=== PATIENT | male | born 1990 | race Caucasian/White ===

== ENCOUNTER → 2017-12-17 10:37 | Outpatient (CLI) | payer OTHER, SELFPAY ==
--- NOTE | 2017-12-17 | DI.RAD.S_ITS ---
PROCEDURE: [place] SHOULDER INJECTION MR/CT RT INDICATIONS: Pain in right shoulder TECHNIQUE: The indications, alternatives, benefits, risks, and complications of the procedure were explained to the patient. Written informed consent was obtained and placed in the chart. The shoulder was examined fluoroscopically and a site for needle placement chosen for entry into the glenohumeral joint from an anterior approach. The skin was prepped and draped in a sterile fashion, and 1% lidocaine infiltrated from skin down to joint capsule. A spinal needle was inserted into the glenohumeral joint, and a small amount of iodinated contrast media injected to confirm intra-articular placement of the needle tip. This was followed by approximately 12 mL dilute solution of a gadolinium containing MR contrast agent. The needle was removed and a dressing was applied. The patient was given postprocedural instructions and sent to the MR suite for MR imaging. FINDINGS: A single fluoroscopic spot image demonstrates intra-articular location of injected iodinated contrast. IMPRESSION: Successful fluoroscopically guided administration of dilute Gadolinium solution into the shoulder joint for MR arthrogram. Dictated by: Seb Herring M.D. on 12/17/2017 at 14:34 Approved by: Seb Herring M.D. on 12/17/2017 at 14:34
--- NOTE | 2017-12-17 | DI.MRI.S_ITS ---
PROCEDURE: MR SHOULDER RT W CON INDICATIONS: PAIN IN RIGHT SHOULDER TECHNIQUE: After the administration of 12 mL of dilute intra-articular Gadolinium contrast, oblique coronal T1 and T2 spin echo with fat saturation, oblique sagittal T1 spin echo with and without fat saturation, oblique sagittal T2 fast spin echo with fat saturation, axial T1 spin echo with fat saturation through the shoulder. COMPARISON: [facility], , [place] SHOULDER INJECTION MR/CT RT, 12/17/2017, 11:11. FINDINGS: Image quality: Excellent. Rotator cuff: The supraspinatus, infraspinatus, teres minor and subscapularis tendons appear intact throughout. No rotator cuff muscle atrophy on sagittal images. Bones and bursae: No bone marrow contusions or fractures. Mild acromioclavicular joint degeneration. The acromion demonstrates conventional anatomy, without an os acromiale. Capsule and soft tissues: Chronic appearing posterior labral tear is seen for example image 13 series 6. No definite posterior subluxation of the humeral head identified. There is adjacent segmental glenoid hypertrophy and spurring.There is also low signal probably chronic hypertrophy appearance of the anteroinferior labrum suggestive of scarring and sequela related to chronic labral tear in this location. There is also possible sequela of anteroinferior glenoid periosteal sleeve avulsion seen on image 14 series 6. Superior labrum appears intact. No definite Hill-Sachs fracture deformity identified. The long head of the biceps tendon demonstrates normal location and morphology. The rotator interval appears normal, without fibrosis. The coracohumeral ligament is of normal thickness. No intra-articular bodies. IMPRESSION: Chronic appearing tear of the labrum involving the posterior segment, as well as anteroinferior segment where there is additional sequela of anteroinferior glenoid periosteal sleeve avulsion. No rotator cuff tear Dictated by: Seb Herring M.D. on 12/17/2017 at 13:06 Approved by: Seb Herring M.D. on 12/17/2017 at 13:18
== END ==
PROVIDERS: PCP Family Medicine; Visit Provider Family Medicine
DX: M25.511 Pain in right shoulder (principal); S43.491A Other sprain of right shoulder joint, initial encounter
CPT/HCPCS: 23350; 73222; 77002